=== PATIENT | male | born 1975 | race American Indian/Alaskan Native ===

== ENCOUNTER 2017-04-05 19:55 | Emergency (ER) | payer OTHER ==
[~2017-04-05] VITALS: Ht 172.7 cm; Wt 87.0 kg
[2017-04-05 19:57] VITALS: Ht 172.7 cm; Wt 87.0 kg
[2017-04-05] MEDS ORDERED: TETRACAINE 0.5% 4 ML OPH LEFT EYE ONE (21:00)
[2017-04-05] MEDS ORDERED: TOBRAMYCIN 0.3% 3.5 GM OPH OINT LEFT EYE ONE (21:00)
[2017-04-05] MEDS ORDERED: FLUORESCEIN STRIP LEFT EYE ONE (21:00)
[2017-04-05] MEDS ORDERED: TOBRAMYCIN 0.3% 5 ML OPH LEFT EYE ONE (21:30)
--- NOTE | 2017-04-05 21:47 | ERD ---
ER Documentation Chief Complaint Date/Time DATE: 04/05/17 TIME: 21:40 Chief Complaint left eye redness w/ pain 3 days ago after being hit w/ a hat HPI This pleasant 42-year-old male patient presents to emergency department with a 3 day history of left eye pain. Patient reports trauma to his left eye, reports being hit in his eye inadvertently by his child Speiser. Patient reports a green discharge in the morning, intermittent eye pain and burning, denies photosensitivity or change in vision. Patient reports that last month he was diagnosed with glaucoma on lumgon. Patient denies any headache, change in speech or behavior. ROS All systems reviewed and are negative except as per history of present illness. Medications Home Meds Active Scripts Tobramycin-Dexamethasone* (Tobradex* Ophth) 0.3%-0.1% Soln, 2 DROP LEFT EYE Q4 for 7 Days, EA Prov:KAYCEE,VALERI 04/05/17 Allergies Allergies: Coded Allergies: No Known Allergy (Unverified , 04/05/17) PMhx/Soc Medical and Surgical Hx: pt denies Medical Hx History of Surgery: Yes (LEFT SHOULDER/FLANK LIPOMA REMOVED) Anesthesia Reaction: No Hx Neurological Disorder: No Hx Respiratory Disorders: No Hx Cardiac Disorders: No Hx Psychiatric Problems: No Hx Miscellaneous Medical Probl: Yes (PRE-GLAUCOMA) Hx Alcohol Use: Yes (OCCASSIONAL ) Hx Substance Use: No Hx Tobacco Use: No Smoking Status: Never smoker Physical Exam Vitals Vital Signs Date Time Temp Pulse Resp B/P Pulse Ox O2 Delivery O2 Flow Rate FiO2 04/05/17 19:57 97.8 78 20 152/94 100 Vitals stable, triage notes reviewed, blood pressure noted to be 152/94 Physical Exam Const: Well-nourished, well-hydrated, articulate no acute distress Head: Atraumatic Eyes: Eye Exam: Visual Acuity: Left eye 20/20, right eye 20/20, both eyes 2009 Visual [place]: Intact in all four quadrants bilaterally [place] ducts/glands: No swelling Lids w/ evertion: Normal, no foreign body Conj/[place]: Left eye has a small corneal abrasion noted at 11:00, conjunctiva Anterior Chamber: Clear Tonopen readings: Retina exam: ENT: Normal External Ears, Nose and Mouth. Neck: Resp: Respirations even and unlabored, no respiratory distress Cardio: Abd: Skin: Back: Ext: Neur: Awake and alert Psych: Normal Mood and Affect Results 24 hrs Current Medications Medications (Trade) Dose Ordered Sig/Pedro Route PRN Reason Start Time Stop Time Status Last Admin Dose Admin Tetracaine HCl (Tetracaine 0.5% Steri-Unit Zahira) 1 drop ONCE ONCE LEFT EYE 04/05/17 21:00 04/05/17 21:01 DC Fluorescein Sodium (Jekoo-D-Owvzj) 1 strip ONCE ONCE LEFT EYE 04/05/17 21:00 04/05/17 21:01 DC Tobramycin Sulfate (Tobrex 0.3% Oph Oint) 1 applic ONCE ONCE LEFT EYE 04/05/17 21:00 04/05/17 21:27 DC Tobramycin Sulfate (Tobrex 0.3% Oph Drop) 2 drop ONCE ONCE LEFT EYE 04/05/17 21:30 04/05/17 21:31 DC 04/05/17 22:14 Procedures/MDM This pleasant 42-year-old male patient presents to emergency department for evaluation of left eye pain. Patient was holding his toddler, toddler wearing a baseball cap and inadvertently hit him in the eye with the rim of the hat. Patient reports no vision loss, states he has green discharge in the morning and a burning sensation in his eye. Patient has a new onset of glaucoma is on eyedrops to reduce intraocular pressure. No suspicion for keratitis, stye or chalazion, uvulitis, physical exam findings are consistent with a corneal abrasion. Patient has a abrasion noted at 11:00 medial canthus. Tobrex 2 drops every 4 hours 7 days started in emergency department. Follow-up with irrigation manager tomorrow. I feel the patient is stable for discharge at this time. I have discussed results, examination findings, the treatment plan with the patient and family present prior to discharge. Indications for emergent reevaluation, side effects of medication were also discussed. All questions were answered. Patient verbalizes understanding and agrees with plan of care. Departure Diagnosis: Primary Impression: Cornea abrasion Encounter type: initial encounter Laterality: left Qualified Code: S05.02XA - Cornea abrasion, left, initial encounter Patient Instructions: Corneal Abrasion Additional Instructions: Thank you for for coming to [facility] for your care today. Please ask your nurse or provider if you have questions about your care today and do not leave until all your questions have been answered. Please use any medications given as directed and follow-up with your doctor (or the doctor you were referred to) in the next 2-3 days. If you do not have a primary care doctor you may follow up at the [facility] (listed below). You may also use motrin and tylenol as needed for fever and/or pain unless instructed otherwise by your provider or nurse. Indications for more urgent follow-up have been discussed, but you may return to the Emergency Department at ANY time for any worrisome or worsening symptoms. If you have abdominal pain, please know that no test or exam you received is perfect and you should follow up within 8 hours for continued pain. If you had any imaging studies today, such as an X-Ray or CT Scan, these studies will be reviewed later by a radiologist. You will be called if there are important findings that were not identified today, so make sure the contact information you provided at registration is correct. If you received any narcotic pain control medicine today, such as Vicodin, Morphine or Dilaudid, your coordination and judgment may be affected for a number of hours. Please do not drive or operate heavy machinery, and you may want someone to assist you at home. If you were given a prescription for narcotic medication, be aware that it is very addictive- use sparingly and only if necessary. VALERI BENOIT Apr 05, 2017 21:47
[2017-04-05] MEDS ORDERED: SDSTOBDEX LEFT EYE (21:50)
== END 2017-04-05 22:18 | disposition home or self-care (01) ==
LOC: FTE 19:55
DX: S05.02XA Injury of conjunctiva and corneal abrasion without foreign body, left eye, initial encounter (principal); W22.8XXA Striking against or struck by other objects, initial encounter; Y92.9 Unspecified place or not applicable
CPT/HCPCS: Z7502; Z7610; 99283

== ENCOUNTER 2017-06-04 10:40 | Day surgery (SDC) | payer OTHER ==
[~2017-06-04] VITALS: Ht 167.6 cm; Wt 87.6 kg
[~2017-06-04 10:40] MED LIST: SDSTOBDEX LEFT EYE
[2017-06-04 11:25] VITALS: Ht 167.6 cm; Wt 87.6 kg
[2017-06-04] MEDS ORDERED: TOBR5DRO14 LEFT EYE (11:36)
[2017-06-04 11:40] VITALS: BP 122/81; PULSE 68; RESP 10
--- NOTE | 2017-06-04 12:09 | OPPN ---
Date/Time of Note Date/Time of Note DATE: 06/04/17 TIME: 12:07 Operative Report Preoperative Diagnosis abdominal pain Postoperative Diagnosis diverticulosis Operation/Procedure Performed colonoscopy Provider: SHANE AVILA MD Anesthesia Type: moderate sedation Estimated blood loss: none Transfusion Required: no Specimen: none Grafts/Implants: none Complications: no SHANE AVILA MD Jun 04, 2017 12:09
[2017-06-04 12:36] VITALS: BP 103/73; PULSE 69; RESP 18
[2017-06-04] MEDS ORDERED: FENTAnyl 50 MCG/ML VIAL ONE ×2 (13:06→18:21)
[2017-06-04] MEDS ORDERED: MIDAZOLAM 1 MG/ML 2 ML INJ ONE ×2 (13:07)
--- NOTE | 2017-06-04 19:21 | GILP ---
DATE OF PROCEDURE: 06/04/2017 PROCEDURE: Colonoscopy. SURGEON: Celestine Talamantes MD PREOPERATIVE DIAGNOSES: 1. Change in bowel habits. 2. Lower abdominal pain. POSTOPERATIVE DIAGNOSES: 1. Colonoscopy all the way to the ileocecal valve. 2. Diverticulosis of the colon. 3. Internal hemorrhoids. INDICATION: Mr. Shaan Troncoso is a 42-year-old male patient who had change in the bowel habits and lower abdominal pain. The patient was scheduled for colonoscopy for further evaluation. The procedure and possible complications were well explained to the patient. He understood and consented to the procedure. DESCRIPTION OF PROCEDURE: Under the influence of fentanyl and Versed, the colonoscope was carefully introduced in the rectum. Under direct vision, it was advanced all the way to the ileocecal valve. The patient had redundant colon and the tip of the cecum could not be reached. Findings the patient has diverticulosis of the colon. He also had internal hemorrhoids. No colon neoplasm was identified. He tolerated the procedure very well. There was no complications from the procedure. At the end of procedure, he was awake with stable vital signs. He was discharged home in the care of his family. IMPRESSION: 1. Colonoscopy to the ileocecal valve. 2. Diverticulosis of the colon. 3. Internal hemorrhoids. PLAN: 1. Plan advised high-fiber diet. 2. Bentyl 10 mg p.o. t.i.d. p.r.n. for pain. Dictated By: MD ELTON Alberto/magen/preet /Document#: [id number]
== END 2017-06-04 16:28 | disposition home or self-care (01) ==
LOC: GIL 10:40
PROVIDERS: ATTEND Internal Medicine Gastroenterology
DX: R19.4 Change in bowel habit (principal); K57.90 Diverticulosis of intestine, part unspecified, without perforation or abscess without bleeding; K64.8 Other hemorrhoids
CPT/HCPCS: 45378; J2250; J3010; Z7610